=== PATIENT | female | born 1960 | race Asian ===

== ENCOUNTER 2025-02-12 | Emergency (ER) | payer MEDICAID, SELFPAY ==
[2025-02-12 00:01] VITALS: BMI 29.2
[2025-02-12 00:38] VITALS: BP 158/74; PULSE 60; RESP 16; TEMP 37.1; O2SAT 100
--- NOTE | 2025-02-12 00:44 | PD.EDNV ---
Nausea/Vomit./Diarrhea-RME/HPI General Chief complaint: Nausea/Vomiting/Diarrhea Stated complaint: NV AND FEVER Time Seen by Provider: 02/12/25 00:42 Arrival date/time: 02/12/25 00:00 64F with history of Valley Fever, psych, gastritis and known lung mass presents to ED with 1 day of N/V, diarrhea, and ab cramping. No current ab pain. Patient denies URI symptoms, dysuria, vision changes, dizziness, and AMS. Daughter with her states patient's behavior is baseline. Limitations: no limitations Related Data Home Medications ?Medication ?Instructions ?Recorded ?Confirmed acetaminophen 500 mg tablet 500 mg PO QID PRN Pain 10/30/18 11/23/19 atorvastatin 40 mg tablet 40 mg PO QPM 10/30/18 11/23/19 esomeprazole magnesium 20 mg 20 mg PO QDAY 10/30/18 11/23/19 capsule,delayed release (Nexium 24HR) famotidine 20 mg tablet 20 mg PO QDAY 10/30/18 11/23/19 pantoprazole 40 mg tablet,delayed 40 mg PO QDAY 10/30/18 11/23/19 release paroxetine HCl 20 mg tablet 20 mg PO QDAY 10/30/18 11/23/19 tramadol 50 mg tablet (Ultram) 100 mg PO Q6H PRN Pain 10/30/18 11/23/19 trazodone 150 mg tablet 150 mg PO QDAY 10/30/18 11/23/19 Previous Rx's ?Medication ?Instructions ?Recorded meclizine 25 mg tablet 25 mg PO QDAY PRN dizziness #14 04/04/22 tabs Allergies Allergy/AdvReac Type Severity Reaction Status Date / Time No Known Allergies Allergy Verified 02/12/25 00:04 Review of Systems Review of Systems Systems Reviewed: All systems reviewed, normal except as documented Gastrointestinal Gastrointestinal: Reports as per HPI, Reports abdominal pain (cramping), Reports diarrhea, Reports nausea and Reports vomiting Past Medical History Past Medical History NEUROLOGIC: Negative Neurological Disorders or Seizures CARDIAC: Positive Cardiac Disorders, Hypercholesterolemia and Hypertension; Negative Congestive Heart Failure RESPIRATORY: Negative Chronic Obstructive Pulmonary Disease (COPD) GASTROINTESTINAL: Positive Gastrointestinal Disorders, Gastroesophageal Reflux Disease and Obesity GENITOURINARY: Negative Genitourinary Disorders or Renal Disease REPRODUCTIVE: Positive Previous Pregnancies MUSCULOSKELETAL: Positive Musculoskeletal Disorders and Arthritis ENDOCRINE: Negative Endocrine Disorders, Diabetes Mellitus Type 1, Diabetes Mellitus Type 2 or Hypothyroidism HEMATOLOGIC: Negative Blood Disorders, Anemia or Clotting Problems PSYCHO/SOCIAL: Positive Anxiety OTHER HISTORY: Negative Hospitalization, Falls, Blood Transfusions or Anesthesia Reactions Surgical History SURGICAL: Positive Section Social History SMOKING STATUS: Former smoker ED Exam General Limitations: Present no limitations General appearance: Present alert and in no apparent distress Head Head exam: Present atraumatic Eye Eye exam: Present normal appearance, PERRL and EOMI Neck Neck exam: Present normal inspection, full ROM and trachea midline Chest Chest inspection: Present normal inspection and symmetric chest wall rise Abdominal Exam Abdominal exam: Present soft; Absent tenderness Neurological Exam Neurological exam: Present alert and oriented X3 Psychiatric Psychiatric exam: Present normal affect and normal mood Skin Skin exam: Present warm, dry, intact and normal color Course Quality Measures none Orders Category Date Time Status Bedside COVID-19 Antigen Test NOW Care 02/12/25 00:44 Active COVID-19 Screening Questionnaire NOW Care 02/12/25 02:34 Active Decision to Admit X1 Care 02/12/25 02:34 Active Insert IV NOW Care 02/12/25 02:26 Active CBC Stat Lab 02/12/25 01:29 Completed CMP [Comprehensive Metabolic Panel] Stat Lab 02/12/25 01:29 Completed Drug Screen,Urine Stat Lab 02/12/25 00:58 Completed Lactate (Lactic Acid) Stat Lab 02/12/25 01:29 Results Mag [Magnesium] Stat Lab 02/12/25 01:29 Completed Procalcitonin Stat Lab 02/12/25 01:29 Completed Sodium,Urine Random Stat Lab 02/12/25 02:28 Ordered Urinalysis, C/S if Indicated Stat Lab 02/12/25 00:58 Completed Dicyclomine [Bentyl] Med 02/12/25 00:43 Discontinued 10 mg PO X1 ONE Ondansetron Inj [Zofran Inj] Med 02/12/25 02:28 Discontinued 4 mg IVP X1 ONE Ondansetron Odt [Zofran Odt] Med 02/12/25 00:43 Discontinued 4 mg PO X1 ONE Sodium Chloride 0.9% 1000 ml [Ns] 1,000 ml Med 02/12/25 02:26 Discontinued IV 999 mls/hr Sodium Chloride 0.9% 500 ml [Ns] 500 ml Med 02/12/25 03:21 Active IV 500 mls/hr Vital Signs Vital signs: Vital Signs Temperature 98.7 F 02/12/25 00:38 Pulse Rate 60 02/12/25 00:38 Respiratory Rate 16 02/12/25 00:38 Blood Pressure 158/74 H 02/12/25 00:38 Pulse Oximetry (%) 100 02/12/25 00:38 Oxygen Delivery Method Room Air 02/12/25 00:38 O2 at 100% on RA and WNLs Nausea/Vomiting/Diarrhea MDM Narrative MDM Narrative:: 64F with history of Valley Fever, psych, gastritis and known lung mass presents to ED with 1 day of N/V, diarrhea, and ab cramping. No current ab pain. Patient denies URI symptoms, dysuria, vision changes, dizziness, and AMS. Daughter with her states patient's behavior is baseline. Physical exam reveals normal pupil response and EOM. Speech normal. Normal WOB. No ab tenderness. Patient is afebrile, alert, but appears uncomfortable. No leukocytosis or gross anemia. Lactate minimally elevated. CMP remarkable for low sodium and Cl. Procal normal. UA clean. Patient agreed to being admitted for sodium correction, but then changed her mind because she didn't want to wait and there's someone at home she needs to care for. Patient felt better after some IVF and nausea control and AMA'd. Patient data External records reviewed:: [facility] previous records Clinical information provided by:: patient Social determinants that could affect healthcare access:: mental health Patient has the following chronic illnesses:: [place] Fever, psych, gastritis and known lung mass How is presenting disease/condition affected by chronic disease/condition?: exacerbated by Evaluation data The following diagnostics were reviewed and interpreted by me:: lab results Lab and/or radiology exams considered but not ordered:: ordered Interpretation Summary: above Medications / Prescriptions Medications / Prescriptions considered but not ordered:: ordered Medication administrations:: Medication Administration History Sodium Chloride (Ns) 500 mls @ 500 mls/hr IV .Q1H ONE Stop: 02/12/25 04:20 Discontinued Medications Dicyclomine HCl (Dicyclomine 10 Mg Capsule) 10 mg PO X1 ONE Stop: 02/12/25 00:44 Last Admin: 02/12/25 01:00 Dose: 10 mg Documented By: DT Sodium Chloride (Ns) 1,000 mls @ 999 mls/hr IV .Q1H1M ONE Stop: 02/12/25 03:26 Last Admin: 02/12/25 02:54 Dose: 999 mls/hr Documented By: EVERT Ondansetron HCl (Ondansetron Odt 4 Mg Tabrap) 4 mg PO X1 ONE; Protocol Stop: 02/12/25 00:44 Last Admin: 02/12/25 01:00 Dose: 4 mg Documented By: EVERT Ondansetron HCl (Ondansetron Inj 2 Mg/Ml Inj 2 Ml) 4 mg IVP X1 ONE; Protocol Stop: 02/12/25 02:29 Last Admin: 02/12/25 02:42 Dose: Not Given Documented By: EVERT Non-Admin Reason: Patient Refused above Consultations Consultation(s) initiated? (list below): No Diagnosis Nausea Differential Diagnosis: traveler's diarrhea, food poisoning, gastroenteritis, clostridium difficile infection, drug-induced nausea and vomiting and dehydration Most likely diagnosis given after review of the tests above:: gastroenteritis Admission Indicated Admission indicated?: not indicated Admission Request Was there a request for admission?: No Disposition Plan Disposition Plan: other (specify) (AMA'd) Discharge Plan Plan Patient Disposition: Left Against Medical Advice Prescriptions/Referrals Prescriptions/Med Rec: No Action atorvastatin 40 mg Tablet 40 mg PO QPM tramadol [Ultram] 50 mg Tablet 100 mg PO Q6H PRN (Reason: Pain) acetaminophen 500 mg Tablet 500 mg PO QID PRN (Reason: Pain) famotidine 20 mg Tablet 20 mg PO QDAY paroxetine HCl 20 mg Tablet 20 mg PO QDAY pantoprazole 40 mg Tablet,Delayed Release (Dr/Ec) 40 mg PO QDAY trazodone 150 mg Tablet 150 mg PO QDAY esomeprazole magnesium [Nexium 24HR] 20 mg Capsule,Delayed Release(Dr/Ec) 20 mg PO QDAY meclizine 25 mg tablet 25 mg PO QDAY PRN (Reason: dizziness) Qty: 14 0RF Referrals: Maida Mora PA-C [Primary Care Provider, Family Practice] - In 1 week Problem List Clinical Impression: Gastroenteritis Patient/Caregiver Discharge Instructions Print Language: Aries COLLINS Supervising Physician DENNIS Supervising Physician: Dr. Alejandro
[2025-02-12] MEDS: DICYCLOMINE 10 MG CAPSULE PO (01:00)
[2025-02-12] MEDS: ONDANSETRON ODT 4 MG TABRAP PO (01:00)
[2025-02-12 01:11] LABS: Collection Type, Urine Clean Catch
[2025-02-12 01:25] LABS: Bilirubin,Urine Negative (Negative); Blood,Urine Negative (Negative); Clarity,Urine Clear (Clear/Hazy); Color,Urine Lt-Yellow (Lt Yel-Yel); Culture Indicated,Urine Not Indicated; Glucose, Urine Negative (Negative); Ketones,Urine Negative (Negative); Leukocyte Esterase,Urine Negative (Negative); Nitrite,Urine Negative (Negative); PH,Urine 8.5 (5.0-7.0); Protein,Urine Negative (Neg - Trace); RBC,Urine 3 /hpf (0-3); Specific Gravity,Urine 1.010 (1.001-1.035); Squamous Epithelial Cell,Urine < 1 /hpf (0-5); Urobilinogen,Urine Negative mg/dL (0.0-1.0); WBC,Urine 1 /hpf (0-5)
[2025-02-12 01:29] LABS: Amphetamine/Methamp Scrn,U Negative (Negative); Barbiturate Screen,Urine Negative (Negative); Benzodiazepines Screen,Urine Negative (Negative); Benzoylecgonine Screen, Ur Negative (Negative); Fentanyl Screen,Urine Negative (Negative); Opiate Screen,Urine Negative (Negative); THC Screen,Urine Negative (Negative)
[2025-02-12 01:47] LABS: Lactate (Lactic Acid) 2.4 mMol/L (0.4-2.0)
[2025-02-12 01:48] LABS: Basophils # (Auto) 0.0 Thou/mm3 (0.0-0.2); Basophils % (Auto) 1 % (0-2.5); Eosinophils # (Auto) 0.1 Thou/mm3 (0.0-0.5); Eosinophils % (Auto) 2 % (0-10); Hematocrit 34.4 % (36.0-46.0); Hemoglobin 12.3 g/dL (12.0-16.0); Immature Granulocytes Auto 0.01 Thou/mm3 (0.00-0.00); Lymphocytes # (Auto) 0.8 Thou/mm3 (1.0-4.8); Lymphocytes % (Auto) 18 % (10-50); Mean Corpuscular HGB Conc 35.8 g/dl (31.0-37.0); Mean Corpuscular Hemoglobin 33.3 pg (25.0-35.0); Mean Corpuscular Volume 93 fL (80-100); Monocytes # (Auto) 0.3 Thou/mm3 (0.0-0.8); Monocytes % (Auto) 8 % (0-12); Neutrophils # (Auto) 2.9 Thou/mm3 (1.8-7.7); Neutrophils % (Auto) 71 % (37-80); Nucleated Red Blood Cell # 0.00 Thou/mm3 (0.00-0.00); Nucleated Red Blood Cell % 0 /100 WBC (0); Platelet Count 200 Thou/mm3 (140-440); RDW Standard Deviation 38.5 fL (36.4-46.3); Red Blood Count 3.69 Miln/mm3 (4.00-5.20); White Blood Count 4.1 Thou/mm3 (3.6-11.0)
[2025-02-12 02:20] LABS: Alanine Aminotransferase 12 U/L (10-49); Albumin, Serum 4.1 gm/dL (3.4-4.8); Albumin/Globulin Ratio 1.6 (1.2-2.2); Alkaline Phosphatase 35 U/L (46-116); Anion Gap 10 (7-16); Aspartate Amino Transferase 32 U/L (0-34); BUN/Creatinine Ratio 9 Ratio (12-20); Bilirubin,Total 0.7 mg/dL (0.3-1.2); Blood Urea Nitrogen 7 mg/dL (9-23); Calcium 9.4 mg/dL (8.3-10.6); Calcium (Corrected) 9.4 mg/dL (8.5-10.1); Carbon Dioxide 31.8 mMol/L (20.0-31.0); Chloride 83 mMol/L (98-107); Creatinine (Component) 0.8 mg/dL (0.6-1.3); Estimated Creatinine Clearance 60.3 mL/min (>60); Globulin 2.6 gm/dL (2.3-3.5); Glucose 140 mg/dL (74-106); Magnesium 1.7 mg/dL (1.6-2.6); Osmolality,Calculated 251 (275-295); Potassium 4.1 mMol/L (3.4-5.1); Procalcitonin < 0.04 ng/ml (0.0-0.49); Sodium 125 mMol/L (136-145); Total Protein 6.7 gm/dL (5.7-8.2); eGFR > 60 See Note
[2025-02-12] MEDS: SODIUM CHLORIDE 0.9% 1000 ML 1,000 ML 999 ML IV (02:54)
--- NOTE | 2025-02-12 03:32 | PC.NURSE ---
pt left ama, all risk and consequnes explained to pt up to and including , pt and niece at bedside verbally state they understand. all questions asked. [provider rosetta aware and has spoken to pt. pt a/ox3 gcs 15.
[2025-02-12 04:45] LABS: Reflex Lactate? Y
== END 2025-02-12 03:35 | disposition left against medical advice (07) ==
PROVIDERS: Physician Assistant; Emergency Provider Emergency Medicine; PCP Physician Assistant
DX: K52.9 Noninfective gastroenteritis and colitis, unspecified (principal)
CPT/HCPCS: 36415; 80053; 80307; 81001; 83605; 83735; 84145; 84300; 85025; 87811; 96360; 99284; J7030; Q0162; A9270